=== PATIENT | female | born 1935 | race American Indian/Alaskan Native ===

== ENCOUNTER 2017-02-14 10:02 | Emergency (ER) | payer MEDICAID, MEDICARE ==
--- NOTE | 2017-02-14 11:25 | EDM.PDOC ---
ED HPI GENERAL MEDICAL PROBLEM - General Chief Complaint: Upper Extremity Injury/Pain Stated Complaint: hand problem [id number] Time Seen by Provider: 02/14/17 11:12 Source of Information: Reports: Patient, RN, RN Notes Reviewed History Limitations: Reports: No Limitations - History of Present Illness INITIAL COMMENTS - FREE TEXT/NARRATIVE: Patient this morning was moving a shoe and fell over and cut her left hand. Does not want stitches, just butterflies. Denies loss of consciousness or dizziness. She has a 5cm top of the hand and a 1cm lower forearm. Onset: Today Location: Reports: Upper Extremity, Left Quality: Reports: Ache Severity: Moderate Improves with: Reports: None Worsens with: Reports: None Associated Symptoms: Reports: No Other Symptoms Left Hand Pain Score (Numeric/FACES): 0 - Related Data Allergies Allergy/AdvReac Type Severity Reaction Status Date / Time No Known Allergies Allergy Verified 02/14/17 10:17 Home Meds: Home Meds Furosemide [Furosemide] 20 mg pe PO DAILY 02/14/17 [History] Levothyroxine [Synthroid] 50 mcg PO ACBREAKFAST 02/14/17 [History] Lisinopril/Hydrochlorothiazide [Lisinopril-Hctz 10-12.5 mg Tab] 1 tab PO DAILY 02/14/17 [History] Omeprazole [Omeprazole] 20 mg PO DAILY 02/14/17 [History] Simvastatin [Zocor] 20 mg PO DAILY 02/14/17 [History] metFORMIN [Glucophage XR] 500 mg PO DAILY 02/14/17 [History] Past Medical History HEENT History: Reports: Impaired Vision Cardiovascular History: Reports: None Respiratory History: Reports: None Gastrointestinal History: Reports: Other (See Below) Other Gastrointestinal History: hx ulcer Genitourinary History: Reports: None 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 Musculoskeletal History: Reports: None Neurological History: Reports: None Psychiatric History: Reports: Anxiety Endocrine/Metabolic History: Reports: Diabetes, Type II Hematologic History: Reports: None Immunologic History: Reports: None Oncologic (Cancer) History: Reports: None Dermatologic History: Reports: None - Infectious Disease History Infectious Disease History: Reports: None - Past Surgical History Head Surgeries/Procedures: Reports: None Social & Family History - Family History Family Medical History: Noncontributory - Tobacco Use Smoking Status *Q: Never Smoker Second Hand Smoke Exposure: No - Caffeine Use Caffeine Use: Reports: Coffee - Alcohol Use Days Per Week of Alcohol Use: 0 - Recreational Drug Use Recreational Drug Use: No Review of Systems - Review of Systems Review Of Systems: See Below ED EXAM, GENERAL - Physical Exam Exam: See Below Exam Limited By: No Limitations General Appearance: Alert, WD/WN, No Apparent Distress Eye Exam: Bilateral Eye: Normal Inspection Ears: Normal External Exam, Normal Canal, Hearing Grossly Normal, Normal TMs Nose: Normal Inspection, Normal Mucosa, No Blood Throat/Mouth: Normal Inspection, Normal Lips, Normal Teeth, Normal Gums, Normal Oropharynx, Normal Voice, No Airway Compromise Head: Atraumatic, Normocephalic Neck: Normal Inspection, Supple, Non-Tender, Full Range of Motion Respiratory/Chest: Other (diminished lung sounds.) Cardiovascular: Normal Peripheral Pulses, Regular Rate, Rhythm, No Edema, No Gallop, No JVD, No Murmur, No Rub GI/Abdominal: Normal Bowel Sounds, Soft, Non-Tender, No Organomegaly, No Distention, No Abnormal Bruit, No Mass (Female) Exam: Deferred Rectal (Female) Exam: Deferred Back Exam: Normal Inspection, Full Range of Motion, NT Extremities: Normal Inspection, Normal Range of Motion, Non-Tender, Normal Capillary Refill, No Pedal Edema Neurological: Alert, Oriented, CN II-XII Intact, Normal Cognition, Normal Gait, Normal Reflexes, No Motor/Sensory Deficits Psychiatric: Normal Affect, Normal Mood Skin Exam: Other (A 5cm skin laceration.) Lymphatic: No Adenopathy Course - Vital Signs Last Recorded V/S: Last Vital Signs Temp 96.6 F 02/14/17 10:10 Pulse 90 02/14/17 11:32 Resp 18 02/14/17 11:32 BP 167/72 H 02/14/17 10:10 Pulse Ox 96 02/14/17 11:32 - Re-Assessments/Exams Free Text/Narrative Re-Assessment/Exam: 02/14/17. A 5cm skin tear, 5 butterflies applied. A telfa and then wrapped with Kerlex. Patient does not want sutures. Departure - Departure Time of Disposition: 11:23 Disposition: Home, Self-Care 01 Condition: Good Clinical Impression: Skin tear of left hand without complication Qualifiers: Encounter type: initial encounter Qualified Code(s): S61.412A - Laceration without foreign body of left hand, initial encounter - Discharge Information Instructions: Hand Contusion, [id number] Referrals: PCP,None [Primary Care Provider] - Forms: ED Department Discharge Additional Instructions: Keep butterflies on the wound until they fall off. Keep area clean and dry. Follow up with your primary care facility as needed.
== END 2017-02-14 11:33 | disposition home or self-care (01) ==
LOC: DL.ED 10:02
DX: S61.412A Laceration without foreign body of left hand, initial encounter (principal); E11.9 Type 2 diabetes mellitus without complications; Z79.899 Other long term (current) drug therapy; Z79.84 Long term (current) use of oral hypoglycemic drugs; W01.118A Fall on same level from slipping, tripping and stumbling with subsequent striking against other sharp object, initial encounter
CPT/HCPCS: 99282; 99285

== ENCOUNTER 2017-06-28 11:54 | Emergency (ER) | payer MEDICARE ==
--- NOTE | 2017-06-28 12:45 | EDM.PDOC ---
ED HPI GENERAL MEDICAL PROBLEM - General Chief Complaint: Upper Extremity Injury/Pain Stated Complaint: [id number] FELL AT SISTERS HOUSE HURT HAND HIT HEAD Time Seen by Provider: 06/28/17 12:10 Source of Information: Reports: Patient, RN, RN Notes Reviewed History Limitations: Reports: No Limitations - History of Present Illness INITIAL COMMENTS - FREE TEXT/NARRATIVE: Pt presents to the ER with c/o a fall at her sisters resulting in a laceration to the left middle finger and a lump on her forehead. She states she tripped over a small step at her sisters and fell. She states she hit her head on the concrete. She denies LOC. SHe states she did not have a dizzy episode or any other episode prior to falling. Patient states her right arm and right leg are shaking more than usual after her fall. She states she does no know what the shaking is from. Onset: Today, Sudden Duration: Constant Location: Reports: Head Quality: Reports: Throbbing - Related Data Allergies Allergy/AdvReac Type Severity Reaction Status Date / Time No Known Allergies Allergy Verified 06/28/17 12:08 Home Meds: Home Meds Furosemide 20 mg pe PO DAILY 02/14/17 [History] Levothyroxine [Synthroid] 50 mcg PO ACBREAKFAST 02/14/17 [History] Lisinopril/Hydrochlorothiazide [Lisinopril-Hctz 10-12.5 mg Tab] 1 tab PO DAILY 02/14/17 [History] Omeprazole 20 mg PO DAILY 02/14/17 [History] Simvastatin [Zocor] 20 mg PO DAILY 02/14/17 [History] metFORMIN [Glucophage XR] 500 mg PO DAILY 02/14/17 [History] Past Medical History HEENT History: Reports: Impaired Vision Cardiovascular History: Reports: Hypertension Respiratory History: Reports: None Gastrointestinal History: Reports: Other (See Below) Other Gastrointestinal History: hx ulcer Genitourinary History: Reports: None 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 Musculoskeletal History: Reports: None Neurological History: Reports: None Psychiatric History: Reports: Anxiety Endocrine/Metabolic History: Reports: Diabetes, Type II Hematologic History: Reports: None Immunologic History: Reports: None Oncologic (Cancer) History: Reports: None Dermatologic History: Reports: None - Infectious Disease History Infectious Disease History: Reports: None - Past Surgical History Head Surgeries/Procedures: Reports: None Social & Family History - Family History Family Medical History: Noncontributory - Tobacco Use Smoking Status *Q: Never Smoker Second Hand Smoke Exposure: No - Caffeine Use Caffeine Use: Reports: Coffee - Alcohol Use Days Per Week of Alcohol Use: 0 - Recreational Drug Use Recreational Drug Use: No Review of Systems - Review of Systems Review Of Systems: ROS reveals no pertinent complaints other than HPI. ED EXAM, GENERAL - Physical Exam Exam: See Below Exam Limited By: No Limitations General Appearance: Alert, WD/WN, Mild Distress Eye Exam: Bilateral Eye: EOMI, Normal Inspection Ears: Normal External Exam, Hearing Grossly Normal Nose: Normal Inspection Throat/Mouth: Normal Inspection, Normal Voice, No Airway Compromise, Other ( Tongue protrudes to the right at times, extrapyramidal movements and shaking of the mouth) Head: Normocephalic, Facial Swelling (left forehead), Facial Tenderness (left forehead hematoma) Neck: Normal Inspection Respiratory/Chest: No Respiratory Distress, Lungs Clear, Normal Breath Sounds, No Accessory Muscle Use, Chest Non-Tender Cardiovascular: Normal Peripheral Pulses, Regular Rate, Rhythm, No Edema, No Gallop, No JVD, No Murmur, No Rub Peripheral Pulses: 2+: Radial (L), Radial (R) GI/Abdominal: Normal Bowel Sounds, Soft, Non-Tender (Female) Exam: Deferred Rectal (Female) Exam: Deferred Back Exam: Normal Inspection, Full Range of Motion Extremities: Normal Inspection, Normal Range of Motion, Non-Tender, No Pedal Edema, Normal Capillary Refill Neurological: Alert, Oriented, CN II-XII Intact, Normal Cognition, Normal Gait, Normal Reflexes, No Motor/Sensory Deficits Psychiatric: Normal Affect, Normal Mood Skin Exam: Warm, Dry, Normal Color, No Rash, Other (1.5cm skin tear to the dorsal left middle finger) Lymphatic: No Adenopathy Course - Vital Signs Last Recorded V/S: Last Vital Signs Temp 98.6 F 06/28/17 11:58 Pulse 96 06/28/17 11:58 Resp 20 06/28/17 11:58 BP 199/96 H 06/28/17 11:58 Pulse Ox 98 06/28/17 11:58 - Radiology Interpretation Free Text/Narrative:: Head CT without contrast: No acute findings See rad report Departure - Departure Time of Disposition: 13:55 Disposition: Home, Self-Care 01 Condition: Fair Clinical Impression: Fall Qualifiers: Encounter type: initial encounter Qualified Code(s): W19.XXXA - Unspecified fall, initial encounter Skin tear of left hand without complication Qualifiers: Encounter type: initial encounter Qualified Code(s): S61.412A - Laceration without foreign body of left hand, initial encounter Traumatic hematoma of forehead Qualifiers: Encounter type: initial encounter Qualified Code(s): S00.83XA - Contusion of other part of head, initial encounter - Discharge Information Instructions: Hematoma, [id number], Fall Prevention in the Home, [id number] , Skin Tear Care, [id number] Forms: ED Department Discharge Additional Instructions: Keep area on the hand clean and dry May use Tylenol as directed for pain Follow up with your primary care facility
== END 2017-06-28 14:16 | disposition home or self-care (01) ==
LOC: DL.ED 11:54
DX: S61.213A Laceration without foreign body of left middle finger without damage to nail, initial encounter (principal); S00.83XA Contusion of other part of head, initial encounter; I10 Essential (primary) hypertension; E11.9 Type 2 diabetes mellitus without complications; Z79.899 Other long term (current) drug therapy; Z79.84 Long term (current) use of oral hypoglycemic drugs; W01.10XA Fall on same level from slipping, tripping and stumbling with subsequent striking against unspecified object, initial encounter
CPT/HCPCS: 70450; 99284

== ENCOUNTER 2018-12-04 10:10 | Emergency (ER) | payer MEDICARE ==
--- NOTE | 2018-12-04 10:33 | EDM.PDOC ---
ED HPI GENERAL MEDICAL PROBLEM - General Chief Complaint: Laceration Stated Complaint: CUT LEFT HAND Time Seen by Provider: 12/04/18 10:20 Source of Information: Reports: Patient, Old Records, RN, RN Notes Reviewed History Limitations: Reports: No Limitations - History of Present Illness INITIAL COMMENTS - FREE TEXT/NARRATIVE: Pt presents to ER from home by POV with c/o a skin tear to the dorsum of the left hand sustained this morning while trying to catch her from falling. Pt thinks her Tetanus vaccine in >10yrs ago. She denies any other injury. Onset: Today, Sudden Duration: Constant Location: Reports: Upper Extremity, Left Quality: Reports: Ache Severity: Mild Improves with: Reports: None Worsens with: Reports: None - Related Data Allergies Allergy/AdvReac Type Severity Reaction Status Date / Time codeine Allergy Dizziness Verified 12/04/18 10:23 Penicillins Allergy Cannot Verified 11/29/18 18:59 Remember Home Meds: Home Meds Furosemide 20 mg pe PO DAILY 02/14/17 [History] Levothyroxine [Synthroid] 50 mcg PO ACBREAKFAST 02/14/17 [History] Omeprazole 20 mg PO DAILY 02/14/17 [History] Simvastatin [Zocor] 20 mg PO DAILY 02/14/17 [History] Chlorthalidone 25 mg PO DAILY 11/29/18 [History] PARoxetine HCl [Paroxetine HCl] 20 mg PO DAILY 12/04/18 [History] Past Medical History HEENT History: Reports: Impaired Vision Other HEENT History: wears glasses Cardiovascular History: Reports: High Cholesterol, Hypertension Respiratory History: Reports: None Gastrointestinal History: Reports: Other (See Below) Other Gastrointestinal History: hx ulcer Genitourinary History: Reports: None 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 Musculoskeletal History: Reports: None Neurological History: Reports: None Psychiatric History: Reports: Anxiety Endocrine/Metabolic History: Reports: Diabetes, Type II Hematologic History: Reports: None Immunologic History: Reports: None Oncologic (Cancer) History: Reports: None Dermatologic History: Reports: None - Infectious Disease History Infectious Disease History: Reports: None - Past Surgical History Head Surgeries/Procedures: Reports: None Social & Family History - Family History Family Medical History: Noncontributory - Tobacco Use Smoking Status *Q: Never Smoker Second Hand Smoke Exposure: No - Caffeine Use Caffeine Use: Reports: Coffee - Recreational Drug Use Recreational Drug Use: No - Living Situation & Occupation Living situation: Reports: , with Spouse Occupation: Retired ED ROS GENERAL - Review of Systems Review Of Systems: ROS reveals no pertinent complaints other than HPI. ED EXAM, SKIN/RASH Exam: See Below Exam Limited By: No Limitations General Appearance: Alert, WD/WN, No Apparent Distress Head: Atraumatic, Normocephalic Respiratory/Chest: No Respiratory Distress Cardiovascular: Normal Peripheral Pulses Extremities: Normal Range of Motion, Normal Capillary Refill, Other ( Superficial skin tear to dorsum of left hand, no active bleeding, no FB.) Neurological: Alert, Oriented, No Motor/Sensory Deficits Psychiatric: Normal Mood Course - Vital Signs Last Recorded V/S: Last Vital Signs Temp 97.1 F 12/04/18 10:15 Pulse 78 12/04/18 10:15 Resp 18 12/04/18 10:15 BP 201/87 H 12/04/18 10:15 Pulse Ox 97 12/04/18 10:15 - Orders/Labs/Meds Orders: Active Orders 24 hr Category Date Time Status Vaccines to be Administered [RC] PER UNIT ROUTINE Care 12/04/18 10:32 Ordered Steri Strips Application [OM.PC] Routine Oth 12/04/18 10:32 Ordered Meds: Medications Discontinued Medications Generic Name Dose Route Start Last Admin Trade Name Aryan PRN Reason Stop Dose Admin Diphtheria/Tetanus/Acell Pertussis 0.5 ml 12/04/18 10:31 Adacel IM 12/04/18 10:32 .ONCE ONE - Re-Assessments/Exams Free Text/Narrative Re-Assessment/Exam: 12/04/18 10:40 Steri-strips applied by RN. Departure - Departure Time of Disposition: 10:32 Disposition: Home, Self-Care 01 Condition: Good Clinical Impression: Skin tear of left hand without complication Qualifiers: Encounter type: initial encounter Qualified Code(s): S61.412A - Laceration without foreign body of left hand, initial encounter - Discharge Information *PRESCRIPTION DRUG MONITORING PROGRAM REVIEWED*: No *COPY OF PRESCRIPTION DRUG MONITORING REPORT IN PATIENT HOLLIS: No Instructions: Skin Tear Care, [id number], Sterile Tape Wound Care Forms: ED Department Discharge Additional Instructions: Follow up in clinic if any further problems. - My Orders Last 24 Hours: My Active Orders 12/04/18 10:32 Vaccines to be Administered [RC] PER UNIT ROUTINE Steri Strips Application [OM.PC] Routine - Assessment/Plan Last 24 Hours: My Active Orders 12/04/18 10:32 Vaccines to be Administered [RC] PER UNIT ROUTINE Steri Strips Application [OM.PC] Routine
[2018-12-04] MEDS: Diphtheria,Pertussis(Acell),Tetanus Vaccine 0.5 ML SDV IM ONE (10:41)
== END 2018-12-04 10:44 | disposition home or self-care (01) ==
LOC: DL.ED 10:10
DX: S61.412A Laceration without foreign body of left hand, initial encounter (principal); E78.00 Pure hypercholesterolemia, unspecified; I10 Essential (primary) hypertension; E11.9 Type 2 diabetes mellitus without complications; Z23 Encounter for immunization; Z88.5 Allergy status to narcotic agent; Z88.0 Allergy status to penicillin; Z79.899 Other long term (current) drug therapy
CPT/HCPCS: 12001; 90471; 90715; 99282

== ENCOUNTER 2020-05-02 09:50 | Emergency (ER) | payer MEDICARE, MEDICAID ==
--- NOTE | 2020-05-02 11:26 | EDM.PDOC ---
ED HPI GENERAL MEDICAL PROBLEM - General Chief Complaint: Gastrointestinal Problem Stated Complaint: UNABLE TO EAT, 3 DAYS Time Seen by Provider: 05/02/20 11:05 Source of Information: Reports: Patient, Family () History Limitations: Reports: No Limitations - History of Present Illness INITIAL COMMENTS - FREE TEXT/NARRATIVE: This 84 yo female patient was brought to the ED by her due to a 3 day history of decreased appetite and nausea. The patient reports she has been vomiting for the past 2 days. The patient reports she has been taking her medications as prescribed and has been able to drink fluids. The patient reports she did have the flu vaccination last year, but has not had the COVID vaccination. The patient patient also reports lower abdominal tenderness and pain. The patient denies any dysuria or changes in bowel movements. The patient denies any dark/tarry stools or diarrhea. Onset Date: 04/30/20 Duration: Day(s):, Constant Location: Reports: Abdomen Quality: Reports: Ache, Dull Severity: Moderate Improves with: Reports: None Worsens with: Reports: None Context: Reports: Other Associated Symptoms: Reports: No Other Symptoms Abdominal Pain Score (Numeric/FACES): 3 - Related Data Allergies Allergy/AdvReac Type Severity Reaction Status Date / Time codeine Allergy Dizziness Verified 05/02/20 10:25 Penicillins Allergy Cannot Verified 05/02/20 10:25 Remember Home Meds: Home Meds Furosemide 20 mg pe PO DAILY 02/14/17 [History] Levothyroxine [Synthroid] 50 mcg PO ACBREAKFAST 02/14/17 [History] Simvastatin [Zocor] 20 mg PO DAILY 02/14/17 [History] Chlorthalidone 25 mg PO DAILY 11/29/18 [History] PARoxetine HCL [Paroxetine HCl] 20 mg PO DAILY 12/04/18 [History] Aspirin [Aspirin EC] 81 mg PO DAILY 05/02/20 [History] Potassium Chloride [Klor-Con 10] 20 meq PO DAILY 05/02/20 [History] lisinopriL [Lisinopril] 20 mg PO DAILY 05/02/20 [History] Past Medical History HEENT History: Reports: Impaired Vision Other HEENT History: wears glasses Cardiovascular History: Reports: High Cholesterol, Hypertension Respiratory History: Reports: None Gastrointestinal History: Reports: Other (See Below) Other Gastrointestinal History: hx ulcer Genitourinary History: Reports: None 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: 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 Musculoskeletal History: Reports: None Neurological History: Reports: None Psychiatric History: Reports: Anxiety Endocrine/Metabolic History: Reports: Diabetes, Type II Hematologic History: Reports: None Immunologic History: Reports: None Oncologic (Cancer) History: Reports: None Dermatologic History: Reports: None - Infectious Disease History Infectious Disease History: Reports: None - Past Surgical History Head Surgeries/Procedures: Reports: None Social & Family History - Family History Family Medical History: No Pertinent Family History - Tobacco Use Tobacco Use Status *Q: Never Tobacco User Second Hand Smoke Exposure: No - Caffeine Use Caffeine Use: Reports: Coffee - Recreational Drug Use Recreational Drug Use: No - Living Situation & Occupation Living situation: Reports: , with Spouse Occupation: Retired ED ROS GENERAL - Review of Systems Review Of Systems: Comprehensive ROS is negative, except as noted in HPI. ED EXAM, GI/ABD - Physical Exam Exam: See Below Exam Limited By: No Limitations General Appearance: Alert, WD/WN, Mild Distress Eyes: Bilateral: Normal Appearance, EOMI Ears: Normal External Exam, Normal Canal, Hearing Grossly Normal, Normal TMs Nose: Normal Inspection, Normal Mucosa, No Blood Throat/Mouth: Normal Inspection, Normal Lips, Normal Teeth, Normal Gums, Normal Oropharynx, Normal Voice, No Airway Compromise Head: Atraumatic, Normocephalic Neck: Normal Inspection, Supple, Non-Tender, Full Range of Motion Respiratory/Chest: No Respiratory Distress, Lungs Clear, Normal Breath Sounds, No Accessory Muscle Use, Chest Non-Tender Cardiovascular: Normal Peripheral Pulses, Regular Rate, Rhythm, No Gallop, No JVD, No Murmur, No Rub GI/Abdominal Exam: Normal Bowel Sounds, No Distention, No Abnormal Bruit, No Mass, Pelvis Stable, Tender (diffuse lower abdominal ) (Female) Exam: Deferred Rectal (Female) Exam: Deferred Back Exam: Normal Inspection, Full Range of Motion, NT Extremities: Pedal Edema Neurological: Alert, Oriented, CN II-XII Intact, Normal Cognition, Normal Gait, Normal Reflexes, No Motor/Sensory Deficits Psychiatric: Normal Affect, Normal Mood Skin Exam: Warm, Dry, Intact, Normal Color, No Rash Lymphatic: No Adenopathy Course - Vital Signs Last Recorded V/S: Last Vital Signs Temp 36.6 C 05/02/20 10:13 Pulse 86 05/02/20 10:13 Resp 16 05/02/20 10:13 BP 156/92 H 05/02/20 10:13 Pulse Ox 100 05/02/20 10:13 - Orders/Labs/Meds Orders: Active Orders 24 hr Category Date Time Status EKG Documentation Completion [RC] STAT Care 05/02/20 11:11 Active Chest 1V Frontal [CR] Urgent Exams 05/02/20 12:12 Ordered CULTURE BLOOD [BC] Stat Lab 05/02/20 11:30 Received UA RFX BARON AND CULT IF INDIC [URIN] Urgent Lab 05/02/20 11:12 Ordered Heparin Sodium/0.45% NaCl [Heparin 25,000 Units in 1/2 Med 05/02/20 12:17 Ordered NS 500 ML] 25,000 units in 500 ml IV ONETIME Midazolam [Versed 1 MG/ML] Med 05/02/20 12:26 Stop Req 2 mg IVPUSH ONETIME ONE Medication Orders Heparin Sodium/Sodium Chloride (Heparin 25,000 Units In 1/2 Ns 500 Ml) 25,000 units in 500 mls @ 16.678 mls/hr IV ONETIME ONE Stop: 05/03/20 18:15 Labs: Laboratory Tests 05/02/20 05/02/20 05/02/20 Range/Units 11:17 11:30 11:30 WBC 9.5 (5.0-10.0) 10^3/uL RBC 4.24 (4.2-5.4) 10^6/uL Hgb 14.1 (12.0-16.0) g/dL Hct 40.4 (37.0-47.0) % MCV 95.3 (80-100) fL MCH 33.3 (27.0-34.0) pg MCHC 34.9 (33.0-35.0) g/dL Plt Count 288 (150-450) 10^3/uL Neut % (Auto) 82.9 H (42.2-75.2) % Lymph % (Auto) 8.4 L (20.5-50.1) % [place] % (Auto) 8.3 H (2-8) % Eos % (Auto) 0.0 L (1.0-3.0) % Baso % (Auto) 0.4 (0.0-1.0) % Sodium 136 (136-145) mmol/L Potassium 3.7 (3.5-5.1) mmol/L Chloride 97 L (98-107) mmol/L Carbon Dioxide 32 (21-32) mmol/L Anion Gap 10.7 (7-13) mEq/L BUN 23 H (7-18) mg/dL Creatinine 1.02 (0.55-1.02) mg/dL Est Cr Clr Drug Dosing 31.89 mL/min Estimated GFR (MDRD) 52 BUN/Creatinine Ratio 22.5 (No establ ref range) Glucose 128 H (74-99) mg/dL Lactic Acid (0.4-2.0) mmol/L Calcium 9.5 (8.5-10.1) mg/dL Total Bilirubin 0.7 (0.2-1.0) mg/dL AST 22 (15-37) U/L ALT 22 (14-59) U/L Alkaline Phosphatase 99 (46-116) U/L Troponin I 2.763 H* (0.000-0.056) ng/mL B-Natriuretic Peptide 1310 H (0-100) pg/ml Total Protein 8.0 (6.4-8.2) g/dL Albumin 3.5 (3.4-5.0) g/dL Globulin 4.5 Albumin/Globulin Ratio 0.8 Influenza Type A RNA Negative (NEGATIVE) Influenza Type B RNA Negative (NEGATIVE) SARS-CoV-2 RNA ([place]) Negative (NEGATIVE) 05/02/20 Range/Units 11:30 WBC (5.0-10.0) 10^3/uL RBC (4.2-5.4) 10^6/uL Hgb (12.0-16.0) g/dL Hct (37.0-47.0) % MCV (80-100) fL MCH (27.0-34.0) pg MCHC (33.0-35.0) g/dL Plt Count (150-450) 10^3/uL Neut % (Auto) (42.2-75.2) % Lymph % (Auto) (20.5-50.1) % [place] % (Auto) (2-8) % Eos % (Auto) (1.0-3.0) % Baso % (Auto) (0.0-1.0) % Sodium (136-145) mmol/L Potassium (3.5-5.1) mmol/L Chloride (98-107) mmol/L Carbon Dioxide (21-32) mmol/L Anion Gap (7-13) mEq/L BUN (7-18) mg/dL Creatinine (0.55-1.02) mg/dL Est Cr Clr Drug Dosing mL/min Estimated GFR (MDRD) BUN/Creatinine Ratio (No establ ref range) Glucose (74-99) mg/dL Lactic Acid 1.7 (0.4-2.0) mmol/L Calcium (8.5-10.1) mg/dL Total Bilirubin (0.2-1.0) mg/dL AST (15-37) U/L ALT (14-59) U/L Alkaline Phosphatase (46-116) U/L Troponin I (0.000-0.056) ng/mL B-Natriuretic Peptide (0-100) pg/ml Total Protein (6.4-8.2) g/dL Albumin (3.4-5.0) g/dL Globulin Albumin/Globulin Ratio Influenza Type A RNA (NEGATIVE) Influenza Type B RNA (NEGATIVE) SARS-CoV-2 RNA ([place]) (NEGATIVE) Meds: Medications Generic Name Dose Route Start Last Admin Trade Name Freq PRN Reason Stop Dose Admin Heparin Sodium/Sodium Chloride 25,000 units in 500 mls @ 16.678 mls/hr 05/02/20 12:17 Heparin 25,000 Units In 1/2 Ns 500 Ml IV 05/03/20 18:15 ONETIME ONE 12 UNITS/KG/HR Discontinued Medications Generic Name Dose Route Start Last Admin Trade Name Freq PRN Reason Stop Dose Admin Aspirin 324 mg 05/02/20 12:18 Aspirin PO 05/02/20 12:19 ONETIME ONE Heparin Sodium (Porcine) 4,000 units 05/02/20 12:16 Heparin Sodium IVPUSH 05/02/20 12:17 .BOLUS ONE Midazolam HCl 2 mg 05/02/20 12:26 Versed 1 Mg/Ml IVPUSH 05/02/20 12:27 ONETIME ONE - Re-Assessments/Exams Free Text/Narrative Re-Assessment/Exam: 05/02/20 12:52 Reassessment of the patient resulted in the patient having no current chest pain. Departure - Departure Time of Disposition: 12:49 Disposition: DC/Tfer to Acute Hospital 02 Condition: Serious Clinical Impression: NSTEMI (non-ST elevated myocardial infarction) - Discharge Information *PRESCRIPTION DRUG MONITORING PROGRAM REVIEWED*: Not Applicable *COPY OF PRESCRIPTION DRUG MONITORING REPORT IN PATIENT HOLLIS: Not Applicable Forms: Interfacility Transfer EMTALA Care Plan Goals: Discussed the patient's history, examination, lab, EKG and treatments with Dr. Byrd. Dr. Byrd accepted the patient for continued evaluation and management as an inpatient at [facility] in [place]. The patient will be transported by [facility]. Sepsis Event Note (ED) - Evaluation Sepsis Screening Result: No Definite Risk - Focused Exam Vital Signs: Vital Signs Temp Pulse Resp BP Pulse Ox 05/02/20 10:13 36.6 C 86 16 156/92 H 100 - My Orders Last 24 Hours: My Active Orders 05/02/20 11:11 EKG Documentation Completion [RC] STAT 05/02/20 11:12 UA RFX BARON AND CULT IF INDIC [URIN] Urgent 05/02/20 11:30 CULTURE BLOOD [BC] Stat 05/02/20 12:12 Chest 1V Frontal [CR] Urgent 05/02/20 12:17 Heparin Sodium/0.45% NaCl [Heparin 25,000 Units in 1/2 NS 500 ML] 25,000 units in 500 ml IV ONETIME 05/02/20 12:26 Midazolam [Versed 1 MG/ML] 2 mg IVPUSH ONETIME ONE - Assessment/Plan Last 24 Hours: My Active Orders 05/02/20 11:11 EKG Documentation Completion [RC] STAT 05/02/20 11:12 UA RFX BARON AND CULT IF INDIC [URIN] Urgent 05/02/20 11:30 CULTURE BLOOD [BC] Stat 05/02/20 12:12 Chest 1V Frontal [CR] Urgent 05/02/20 12:17 Heparin Sodium/0.45% NaCl [Heparin 25,000 Units in 1/2 NS 500 ML] 25,000 units in 500 ml IV ONETIME 05/02/20 12:26 Midazolam [Versed 1 MG/ML] 2 mg IVPUSH ONETIME ONE
[2020-05-02 12:00] LABS: ANION GAP 10.7 mEq/L (7-13)
[2020-05-02] MEDS ORDERED: Heparin Sodium 5,000 Units/ML Vial IVPUSH ONE (12:16)
[2020-05-02] MEDS ORDERED: Heparin Sodium/0.45% NaCl 25,000 UNITS/500 ML BAG IV ONE (12:17)
[2020-05-02 12:18] LABS: CORONAVIRUS COVID-19 NAA NEGATIVE (NEGATIVE)
[2020-05-02] MEDS ORDERED: Aspirin 81 MG Tab.Chew PO ONE (12:18)
[2020-05-02] MEDS ORDERED: Midazolam 1 MG/ML 2 ML SDV IVPUSH ONE (12:26)
--- NOTE | 2020-05-02 12:48 | CR ---
CLINICAL HISTORY: 84-year-old female with abnormally elevated serum troponin. Interpretation: 1. Normal cardiac silhouette (size and configuration). No pulmonary vascular congestion, cephalization of flow, alveolar edema or dependent new pleural fluid accumulation (comparison 29 November 2018). 2. Huge hiatus hernia lower middle mediastinum. 3. No new lung mass, hilar lymphadenopathy or alveolar consolidation. No peripheral "groundglass" interstitial lung densities. 4. No pneumothorax or pneumomediastinum. CONCLUSION: No acute new cardiopulmonary abnormality.
== END 2020-05-02 13:26 ==
LOC: DL.ED 09:50
DX: I21.4 Non-ST elevation (NSTEMI) myocardial infarction (principal); E78.00 Pure hypercholesterolemia, unspecified; I10 Essential (primary) hypertension; E11.9 Type 2 diabetes mellitus without complications; Z20.822 Contact with and (suspected) exposure to COVID-19; Z88.5 Allergy status to narcotic agent; Z88.0 Allergy status to penicillin; Z79.82 Long term (current) use of aspirin; Z79.899 Other long term (current) drug therapy
CPT/HCPCS: 0240U; 36415; 71045; 80053; 83605; 83880; 84484; 85025; 87040; 93005; 96365; 99285; A9270; J1644

== ENCOUNTER 2020-05-07 11:02 | Emergency (ER) | payer MEDICARE, MEDICAID ==
[2020-05-07] MEDS ORDERED: Sodium Chloride 0.9% 10 ML Syringe FLUSH PRN (11:16)
--- NOTE | 2020-05-07 11:16 | EDM.PDOC ---
ED HPI GENERAL MEDICAL PROBLEM - General Chief Complaint: Cardiovascular Problem Stated Complaint: THROWING UP Time Seen by Provider: 05/07/20 11:16 Source of Information: Reports: Patient, Old Records, RN, RN Notes Reviewed History Limitations: Reports: No Limitations - History of Present Illness INITIAL COMMENTS - FREE TEXT/NARRATIVE: Pt presents to ER from home by POV with spouse with c/o nausea, and no appetite. Pt was transferred from here on 05/02/20 for a non-STEMI. Pt does not know what what found or what was done while she was in [facility]. states pt had no appetite when he brought her here last week, and she still has no appetite. is angry that he has taken her to clinic because she is "failing" and her legs were so swollen that they became infected, and nothing was done. Pt denies feeling nausea at this time. No emesis at home. Pt denies chest pain. 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: Other Medication(s) - Related Data Allergies Allergy/AdvReac Type Severity Reaction Status Date / Time codeine Allergy Dizziness Verified 05/07/20 11:17 Penicillins Allergy Cannot Verified 05/07/20 11:17 Remember Home Meds: Home Meds Furosemide 40 mg PO DAILY 02/14/17 [History] Levothyroxine [Synthroid] 75 mcg PO ACBREAKFAST 02/14/17 [History] PARoxetine HCL [Paroxetine HCl] 10 mg PO DAILY 12/04/18 [History] Aspirin [Aspirin EC] 81 mg PO DAILY 05/02/20 [History] Potassium Chloride [Klor-Con 10] 20 meq PO DAILY 05/02/20 [History] Clopidogrel [Plavix] 75 mg PO DAILY 05/07/20 [History] Famotidine 20 mg PO DAILY 05/07/20 [History] Lisinopril/Hydrochlorothiazide [Lisinopril-HCTZ 10-12.5 MG] 2 tab PO DAILY 05/07/20 [History] Nystatin [Nystop] 1 applic TOP BID PRN 05/07/20 [History] Simvastatin 20 mg PO BEDTIME 05/07/20 [History] atorvaSTATin [Lipitor] 40 mg PO BEDTIME 05/07/20 [History] carvediloL [Carvedilol] 6.25 mg PO BID 05/07/20 [History] Past Medical History HEENT History: Reports: Impaired Vision Other HEENT History: wears glasses Cardiovascular History: Reports: High Cholesterol, Hypertension Respiratory History: Reports: None Gastrointestinal History: Reports: Other (See Below) Other Gastrointestinal History: hx ulcer Genitourinary History: Reports: None 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: 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: None Musculoskeletal History: Reports: None Neurological History: Reports: None Psychiatric History: Reports: Anxiety Endocrine/Metabolic History: Reports: Diabetes, Type II Hematologic History: Reports: None Immunologic History: Reports: None Oncologic (Cancer) History: Reports: None Dermatologic History: Reports: None - Infectious Disease History Infectious Disease History: Reports: None - Past Surgical History Head Surgeries/Procedures: Reports: None Social & Family History - Family History Family Medical History: No Pertinent Family History - Caffeine Use Caffeine Use: Reports: Coffee - Living Situation & Occupation Living situation: Reports: , with Spouse Occupation: Retired ED ROS GENERAL - Review of Systems Review Of Systems: Comprehensive ROS is negative, except as noted in HPI. ED EXAM, GENERAL - Physical Exam Exam: See Below Exam Limited By: No Limitations General Appearance: Alert, No Apparent Distress, Thin, Other (Chronically ill, frail elderly appearing) Eye Exam: Bilateral Eye: Normal Inspection Ears: Normal External Exam, Hearing Grossly Normal Nose: Normal Inspection, No Blood Throat/Mouth: Normal Voice, No Airway Compromise Head: Atraumatic, Normocephalic Neck: Normal Inspection, Non-Tender Respiratory/Chest: No Respiratory Distress, No Accessory Muscle Use, Chest Non- Tender, Decreased Breath Sounds, Crackles. No: Rhonchi, Wheezing Cardiovascular: Regular Rate, Rhythm, Other (+3 pitting edema to B/L knees with wound dressings on B/L lower legs, chronic venous stasis changes.) GI/Abdominal: Normal Bowel Sounds, Soft, Non-Tender Extremities: Normal Range of Motion, Other (Chronic venous stasis changes). No: Henry's Sign Neurological: Alert, Oriented (to person and place), CN II-XII Intact, No Motor/Sensory Deficits Psychiatric: Depressed Mood, Flat Affect Skin Exam: Warm, Dry, Normal Color #1 Interpretation EKG Date: 05/07/20 Time: 11:26 Rhythm: Other (SR) Rate (Beats/Min): 62 [place]: LAD-Left [place] Deviation P-Wave: Present QRS: Wide (nonspecific IVCD) ST-T: Other (Nonspecific ST-T segment changes, no acute ischemic changes) QT: Normal Comparison: Change From Previous EKG (Prev. RBBB) Course - Vital Signs Last Recorded V/S: Last Vital Signs Temp 97.6 F 05/07/20 11:16 Pulse 64 05/07/20 11:16 Resp 16 05/07/20 11:16 BP 150/59 H 05/07/20 11:16 Pulse Ox 100 05/07/20 11:16 - Orders/Labs/Meds Orders: Active Orders 24 hr Category Date Time Status EKG 12 Lead [EKG Documentation Completion] [] STAT Care 05/07/20 11:17 Active Peripheral IV Care [RC] . DIRECTED Care 05/07/20 11:17 Active Sodium Chloride 0.9% [Saline Flush] Med 05/07/20 11:16 Active 10 ml FLUSH ASDIRECTED PRN Peripheral IV Insertion Adult [OM.PC] Stat Oth 05/07/20 11:17 Ordered Medication Orders Sodium Chloride (Saline Flush) 10 ml FLUSH ASDIRECTED PRN PRN Reason: Keep Vein Open Last Admin: 05/07/20 11:28 Dose: 10 ml Documented by: [id number] Labs: Laboratory Tests 05/07/20 05/07/20 05/07/20 Range/Units 11:25 11:25 11:25 WBC 8.0 (5.0-10.0) 10^3/uL RBC 4.19 L (4.2-5.4) 10^6/uL Hgb 13.8 (12.0-16.0) g/dL Hct 39.7 (37.0-47.0) % MCV 94.7 (80-100) fL MCH 32.9 (27.0-34.0) pg MCHC 34.8 (33.0-35.0) g/dL Plt Count 286 (150-450) 10^3/uL Neut % (Auto) 77.6 H (42.2-75.2) % Lymph % (Auto) 12.7 L (20.5-50.1) % [place] % (Auto) 9.1 H (2-8) % Eos % (Auto) 0.4 L (1.0-3.0) % Baso % (Auto) 0.2 (0.0-1.0) % PT 12.1 H (9.0-12.0) SEC INR 1.3 H (0.9-1.2) APTT 26.3 (22.0-34.0) SEC Sodium 138 (136-145) mmol/L Potassium 4.4 (3.5-5.1) mmol/L Chloride 97 L (98-107) mmol/L Carbon Dioxide 28 (21-32) mmol/L Anion Gap 17.4 H (7-13) mEq/L BUN 61 H D (7-18) mg/dL Creatinine 1.88 H (0.55-1.02) mg/dL Est Cr Clr Drug Dosing 17.30 mL/min Estimated GFR (MDRD) 25 BUN/Creatinine Ratio 32.4 (No establ ref range) Glucose 101 H (74-99) mg/dL Calcium 9.1 (8.5-10.1) mg/dL Total Bilirubin 0.6 (0.2-1.0) mg/dL AST 31 (15-37) U/L ALT 27 (14-59) U/L Alkaline Phosphatase 88 (46-116) U/L Troponin I 0.115 H* (0.000-0.056) ng/mL B-Natriuretic Peptide 152 H (0-100) pg/ml Total Protein 7.6 (6.4-8.2) g/dL Albumin 3.6 (3.4-5.0) g/dL Globulin 4.0 Albumin/Globulin Ratio 0.9 Amylase 38 (25-115) U/L Meds: Medications Generic Name Dose Route Start Last Admin Trade Name Freq PRN Reason Stop Dose Admin Sodium Chloride 10 ml 05/07/20 11:16 05/07/20 11:28 Saline Flush FLUSH 10 ml ASDIRECTED PRN Administration Keep Vein Open Discontinued Medications Generic Name Dose Route Start Last Admin Trade Name Freq PRN Reason Stop Dose Admin Ondansetron HCl 4 mg 05/07/20 11:29 05/07/20 11:39 Zofran IV 05/07/20 11:30 4 mg ONETIME ONE Administration - Radiology Interpretation Free Text/Narrative:: XR Chest: no acute process per Rad. report. - Re-Assessments/Exams Free Text/Narrative Re-Assessment/Exam: 05/07/20 12:37 Pt's troponin is trending down as expected (2.763 on 05/04/20, and 0.115 today). Pt denies nausea, and has kept down food and drink while in the ER. 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 I see no indication for further work up or admission at this time. Plan to d/c pt home, will provide Rx Zofran in the event of any further nausea. Departure - Departure Time of Disposition: 12:41 Disposition: Home, Self-Care 01 Condition: Fair Clinical Impression: Nausea, Poor appetite Instructions: Nausea, Adult Forms: ED Department Discharge Additional Instructions: Rx: Zofran ODT 4mg Take your medications exactly as prescribed. Follow up in clinic with your primary doctor within the next one week. Discuss the poor appetite and nausea with your doctor. Sepsis Event Note (ED) - Focused Exam Vital Signs: Vital Signs Temp Pulse Resp BP Pulse Ox 05/07/20 11:16 97.6 F 64 16 150/59 H 100 - My Orders Last 24 Hours: My Active Orders 05/07/20 11:16 Sodium Chloride 0.9% [Saline Flush] 10 ml FLUSH ASDIRECTED PRN 05/07/20 11:17 EKG 12 Lead [EKG Documentation Completion] [RC] STAT Peripheral IV Care [RC] . DIRECTED Peripheral IV Insertion Adult [OM.PC] Stat - Assessment/Plan Last 24 Hours: My Active Orders 05/07/20 11:16 Sodium Chloride 0.9% [Saline Flush] 10 ml FLUSH ASDIRECTED PRN 05/07/20 11:17 EKG 12 Lead [EKG Documentation Completion] [RC] STAT Peripheral IV Care [RC] . DIRECTED Peripheral IV Insertion Adult [OM.PC] Stat
[2020-05-07] MEDS ORDERED: Ondansetron 4 MG/2 ML SDV IV ONE (11:29)
--- NOTE | 2020-05-07 11:59 | CR ---
EXAMINATION: Chest 1V Frontal SEX: Female AGE: 84 years CLINICAL HISTORY: 84-year-old female complaining of chest pain. INTERPRETATION: Large hiatus hernia. *No acute new cardiopulmonary abnormality since comparison CXR 29 November 2018. (Unchanged since 02 May) 1. Normal cardiac silhouette (size and configuration). Ectatic ascending aorta accentuated by patient rotation/scoliosis. 2. No pulmonary vascular congestion, cephalization of flow, alveolar edema or dependent pleural effusion. 3. No new lung mass, hilar lymphadenopathy or focal lobar consolidation (infiltrate/atelectasis). 4. No peripheral "groundglass" interstitial lung densities. 5. No pneumothorax or pneumomediastinum. Tracheobronchial airway, right of midline, unremarkable. No foreign bodies.
[2020-05-07 12:02] LABS: ANION GAP 17.4 mEq/L (7-13)
[2020-05-07 12:08] LABS: PTT,PARTIAL THROMBOPLSTIN TIME 26.3 SEC (22.0-34.0)
== END 2020-05-07 14:00 | disposition home or self-care (01) ==
LOC: DL.ED 11:02
DX: R11.0 Nausea (principal); R63.0 Anorexia; R60.0 Localized edema; I10 Essential (primary) hypertension; E78.00 Pure hypercholesterolemia, unspecified; E11.9 Type 2 diabetes mellitus without complications; Z88.0 Allergy status to penicillin; Z88.5 Allergy status to narcotic agent; Z79.82 Long term (current) use of aspirin; Z79.02 Long term (current) use of antithrombotics/antiplatelets; Z79.899 Other long term (current) drug therapy
CPT/HCPCS: 36415; 71045; 80053; 82150; 83880; 84484; 85025; 85610; 85730; 93005; 93010; 96374; 99283; 99284; J2405